=== PATIENT | male | born 1930 | race African-American/Black ===

== ENCOUNTER 2018-06-22 18:32 | Inpatient (IN) | payer SELFPAY ==
[~2018-06-22] VITALS: Ht 160 cm; Wt 78.5 kg
[2018-06-22 19:10] LABS: BASOPHILS % 0.8 % (0.0-2.0); EOSINOPHILS % 1.3 % (0.0-5.0); HEMATOCRIT. 44.5 % (42.0-52.0); HEMOGLOBIN. 14.9 g/dL (14.0-18.0); LYMPHOCYTES % 26.1 % (20.0-50.0); MEAN CORPUSCULAR HEMOGLOBIN 30.3 pg (28.0-32.0); MEAN CORPUSCULAR VOLUME 90.5 fL (80.0-94.0); MEAN PLATELET VOLUME 9.1 fl (7.4-10.4); MONOCYTES % 7.6 % (2.0-8.0); NEUTROPHILS % 64.2 % (40.0-76.0); PLATELET 179 x1000/uL (130-400); RED BLOOD CELL COUNT 4.92 mill/uL (4.7-6.1)
[2018-06-22 19:16] LABS: CHLORIDE 102 mEq/L (98-107)
[2018-06-22 19:18] LABS: INR 1.1; PROTHROMBIN TIME 10.7 sec (9.1-11.1)
[2018-06-22 19:22] LABS: ETHANOL BLOOD < 10 mg/dL
[2018-06-22 19:25] LABS: LDL CHOLESTEROL 80 mg/dL (5-100)
[2018-06-22 20:03] LABS: CLARITY URINE CLEAR (CLEAR); COLOR URINE YELLOW (YELLOW); KETONES URINE NEGATIVE (NEGATIVE); LEUKOCYTE ESTERASE URINE NEGATIVE (NEGATIVE); NITRITE URINE NEGATIVE (NEGATIVE); OCCULT BLOOD URINE 1+ (NEGATIVE); PROTEIN URINE NEGATIVE (NEGATIVE); SPECIFIC GRAVITY URINE 1.009 (1.005-1.030); UROBILINOGEN URINE 0.2 E.U./dL (0.2-1.0)
[2018-06-22 20:19] LABS: *AMPHETAMINES SCREEN URINE NEGATIVE (NEGATIVE); *BARBITURATES SCREEN URINE NEGATIVE (NEGATIVE); *BENZODIAZEPINES SCREEN URINE NEGATIVE (NEGATIVE); *COCAINE SCREEN URINE NEGATIVE (NEGATIVE); METHADONE URINE SCREEN NEGATIVE (NEGATIVE)
[2018-06-22 20:20] LABS: CANNABINOID URINE SCREEN NEGATIVE (NEGATIVE); OPIATES URINE SCREEN NEGATIVE (NEGATIVE); PHENCYCLIDINE URINE SCREEN NEGATIVE (NEGATIVE)
[2018-06-22] MEDS ORDERED: ASPIRIN 81MG TABLET PO NR (21:15)
[2018-06-23 00:24] VITALS: BP 144/62
[2018-06-23] MEDS ORDERED: MAGNESIUM/ALUMINUM HYDROXIDE/SIMETHICONE 30ML UDC PO PRN (00:30)
[2018-06-23] MEDS ORDERED: CLONIDINE 0.1MG TABLET PO PRN (00:30)
[2018-06-23] MEDS ORDERED: ONDANSETRON HCL 4MG/2ML INJ IV PRN (00:30)
[2018-06-23] MEDS ORDERED: ACETAMINOPHEN 325MG TABLET PO PRN (00:30)
[2018-06-23] MEDS ORDERED: GUAIFENESIN 200MG/10ML SUGAR FREE UDC PO PRN (00:30)
[2018-06-23] MEDS ORDERED: MINO2.5T2 PO (00:45)
[2018-06-23] MEDS ORDERED: DOXA8TAB81 PO (00:45)
[2018-06-23] MEDS ORDERED: ATOR20TA PO (00:45)
[2018-06-23] MEDS ORDERED: VALS1TAB78 MT (00:45)
[2018-06-23] MEDS ORDERED: CARD12 PO (00:45)
[2018-06-23] MEDS ORDERED: ASPI-1159 PO (00:45)
[2018-06-23] MEDS ORDERED: TRAZ-212 PO (00:45)
[2018-06-23] MEDS: SODIUM CHLORIDE 0.9% INJ 3ML FLUSH IVF SCH ×2 (05:41→13:51)
[2018-06-23 08:00] VITALS: BP 164/73
[2018-06-23] MEDS ORDERED: MINOXIDIL 2.5MG TABLET PO SCH (09:00)
[2018-06-23] MEDS ORDERED: DILTIAZEM HCL 300MG CAPSULE SR 24HR PO SCH (09:00)
[2018-06-23] MEDS ORDERED: ENOXAPARIN 40MG/0.4ML SYR SUBCUT SCH (09:00)
[2018-06-23] MEDS ORDERED: ENOXAPARIN 30MG/0.3ML SYR SUBCUT SCH (09:00)
[2018-06-23] MEDS ORDERED: ASPIRIN 81MG EC TABLET PO SCH (09:00)
[2018-06-23 12:00] VITALS: BP 134/63
[2018-06-23 14:54] VITALS: BP 134/63
[2018-06-23] MEDS ORDERED: ATORVASTATIN CALCIUM 20MG TABLET PO SCH (21:00)
[2018-06-23] MEDS ORDERED: DOXAZOSIN MESYLATE 4MG TABLET PO SCH (21:00)
[2018-06-23] MEDS ORDERED: TRAZODONE HCL 50MG TABLET PO SCH (21:00)
== END 2018-06-23 15:48 | disposition home or self-care (01) | DRG 45 ==
LOC: ER 18:32 → 6EST 21:14 → ENRESERV 23:13
PROVIDERS: ADMIT Internal Medicine; ATTEND Internal Medicine
DX: I63.9 Cerebral infarction, unspecified (principal); E78.00 Pure hypercholesterolemia, unspecified; I25.10 Atherosclerotic heart disease of native coronary artery without angina pectoris; I10 Essential (primary) hypertension; Z79.899 Other long term (current) drug therapy; Z79.82 Long term (current) use of aspirin
CPT/HCPCS: 36415; 70551; 71045; 80305; 83721; 84484; 93005; 96372; 96374; 97161; 99291; G0482; J1650